=== PATIENT | male | born 1940 | race Caucasian/White ===

== ENCOUNTER → 2024-05-02 | Outpatient (CLI) | payer OTHER, SELFPAY ==
--- NOTE | 2024-05-02 10:01 | ECHOD_ITS ---
Reason For Study: ATRIAL FIBRILLATION Procedure This was a 2D Doppler, Color Flow transthoracic echocardiogram. Exam performed in department. Left Ventricle Normal LV size. Mild concentric left ventricular hypertrophy. The left ventricular ejection fraction is 55 %. Diastolic function is indeterminate. Right Ventricle Normal right ventricle. Atria The left atrium is severely enlarged. Normal right atrium. Mitral Valve Mitral valve ring noted. Trivial to mild mitral valve regurgitation. Tricuspid Valve Mild tricuspid valve insufficiency. Normal pulmonary artery pressure. Aortic Valve Trisinus/trileaflet aortic valve. Mild (1+) aortic valve insufficiency. Pulmonic Valve Trivial pulmonic valve insufficiency. Great Vessels Mildly dilated aortic root. Pericardium/Pleural No pericardial effusion. MMode/2D Measurements & Calculations LVIDd: 4.5 cm IVSd: 1.2 cm LVOT diam: 2.2 cm LVIDs: 2.5 cm LVPWd: 1.4 cm LVOT area: 3.7 cm2 RVDd: 3.5 cm FS: 45.6 % asc Aorta Diam: 4.0 cm LAV(MOD-bp): 67.4 ml LVAd ap4: 14.8 cm2 LAV(MOD-bp) Indexed: 35.6 ml/m2 LVLd ap4: 5.8 cm LAV(MOD-sp2): 57.8 ml EDV(MOD-sp4): 32.0 ml LAV(MOD-sp4): 78.0 ml EDV(sp4-el): 31.8 ml LVAs ap4: 10.0 cm2 LVLs ap4: 5.6 cm ESV(MOD-sp4): 15.2 ml ESV(sp4-el): 15.0 ml EF(MOD-sp4): 52.4 % EF(sp4-el): 52.8 % LVAd ap2: 14.1 cm2 SV(MOD-sp4): 16.8 ml SV(MOD-sp2): 15.4 ml LVLd ap2: 6.8 cm SI(MOD-sp4): 8.9 ml/m2 SI(MOD-sp2): 8.2 ml/m2 EDV(MOD-sp2): 25.6 ml EDV(sp2-el): 24.8 ml LVAs ap2: 8.0 cm2 LVLs ap2: 5.6 cm ESV(MOD-sp2): 10.2 ml ESV(sp2-el): 9.7 ml EF(MOD-sp2): 60.3 % SV(sp4-el): 16.8 ml Ao sinus diam: 4.[address] Junction: 3.1 cm LA dimension(2D): 4.2 cm LA A4 area: 24.4 cm2 RA A4 area: 13.1 cm2 TAPSE: 1.7 cm Time Measurements MV dec time: 0.29 sec Doppler Measurements & Calculations MV E max rigoberto: 128.3 cm/sec Lat Peak E' Rigoberto: 9.9 cm/sec Med Peak E' Rigoberto: 7.0 cm/sec MV A max rigoberto: 68.3 cm/sec E/E' lat: 13.0 E/E' med: 18.4 MV E/A: 1.9 MV V2 max: 135.5 cm/sec MV dec slope: 441.5 cm/sec2 Ao V2 max: 107.4 cm/sec MV max P.3 mmHg Ao max P.6 mmHg MV V2 mean: 68.9 cm/sec Ao V2 mean: 75.8 cm/sec MV mean P.3 mmHg Ao mean P.6 mmHg MV V2 VTI: 39.1 cm Ao V2 VTI: 19.9 cm MVA(VTI): 1.4 cm2 AV (velocity ratio): 0.75 JOSE ALBERTO(I,D): 2.8 cm2 JOSE ALBERTO(V,D): 2.7 cm2 LV V1 max: 78.9 cm/sec SV(LVOT): 54.9 ml PA V2 max: 98.9 cm/sec LV V1 max P.5 mmHg PA max PG (full): 2.3 mmHg LV V1 mean P.2 mmHg LV V1 mean: 50.4 cm/sec LV V1 VTI: 14.9 cm TR max rigoberto: 232.2 cm/sec TR max P.6 mmHg ECHO/Echo Complete Interpretation Summary Mild concentric left ventricular hypertrophy. The left ventricular ejection fraction is 55 %. Diastolic function is indeterminate. The left atrium is severely enlarged. Mitral valve ring noted. Trivial to mild mitral valve regurgitation. Mild tricuspid valve insufficiency. Mild (1+) aortic valve insufficiency. Mildly dilated aortic root. Ordering Physician: Stoney Tinoco Referring Physician: Stoney Tinoco Performed By: Liv Hilliard RDCS
--- NOTE | 2024-05-02 10:01 | EKG12_ITS ---
Test Reason : AFIB Blood Pressure : */* mmHG Vent. Rate : 71 BPM Atrial Rate : 71 BPM P-R Int : 164 ms QRS Dur : 110 ms QT Int : 406 ms P-R-T Axes : * 93 17 degrees QTcB Int : 441 ms Sinus rhythm with occasional Premature ventricular complexes Rightward axis Incomplete right bundle branch block Nonspecific ST abnormality Abnormal ECG Confirmed by Dusty Humphries ([id number]), make up editor MICKIE SANDHU ([id number]) on 05/03/2024 5:56:18 AM Referred By: Stoney Tinoco Confirmed By: Dusty Humphries
== END | disposition home or self-care (01) ==
PROVIDERS: PCP Internal Medicine; Referring Provider Chiropractor; Visit Provider Chiropractor
DX: I48.91 Unspecified atrial fibrillation (principal)
CPT/HCPCS: 93005; 93306